=== PATIENT | female | born 1980 | race Caucasian/White ===

== ENCOUNTER → 2017-11-12 14:00 | Outpatient (CLI) | payer OTHER, MEDICAID, SELFPAY ==
--- NOTE | 2017-11-12 14:03 | DI.RAD.S_ITS ---
PROCEDURE: XR SACROILIAC JOINT MIN 3V INDICATIONS: back pain with family history of sacroilitis TECHNIQUE: 3 views of the sacroiliac joints were acquired. COMPARISON: None. FINDINGS: Bones: No bony erosions or ankylosis. No suspicious bony lesions. No fractures. Soft tissues: Overlying bowel gas pattern is normal. No suspicious soft tissue densities. IMPRESSION: No trauma found, no inflammation seen. No sign of ankylosing spondylitis. Dictated by: Osmani Sage M.D. on 11/12/2017 at 15:07 Approved by: Osmani Sage M.D. on 11/12/2017 at 15:07
--- NOTE | 2017-11-12 14:03 | DI.RAD.S_ITS ---
PROCEDURE: XR LUMBAR SPINE 2-3V INDICATIONS: low back pain TECHNIQUE: 3 views of the lumbar spine were acquired. COMPARISON: None. FINDINGS: Bones: 5 [id number] vertebrae are present. There is normal bony alignment. No vertebral body compression fractures. No suspicious bony lesions. Soft tissues: Overlying bowel gas pattern is normal. No suspicious soft tissue calcifications. IMPRESSION: Source of low back pain not found. Dictated by: Osamni Sage M.D. on 11/12/2017 at 15:07 Approved by: Osmani Sage M.D. on 11/12/2017 at 15:07
[2017-11-12 14:54] LABS: Erythrocyte Sedimentation Rate 11 MM/HR (0-20)
[2017-11-12 16:47] LABS: C-Reactive Protein Quant < 0.5 mg/dL (<1.0)
[2017-11-12 16:59] LABS: Rheumatoid Factor < 8.6 IU/mL (<12.0)
[2017-11-12 17:18] LABS: Thyroid Stimulating Hormone 1.95 uIU/mL (0.47-4.68)
[2017-11-14 12:28] LABS: Homocysteine 8.4 umol/L (< 10.4)
[2017-11-14 15:33] LABS: HLA B27 NEGATIVE (Negative)
[2017-11-16 22:04] LABS: ANA Screen NEGATIVE (Negative); DNA Antibody Crithidia IFA NEGATIVE (Negative); Rheumatoid Factor <14 IU/mL; Sjogren Antiboday SS-A <1.0 NEG AI (<1.0 NEGATIVE); Sjogren Antiboday SS-B <1.0 NEG AI (<1.0 NEGATIVE); Sm Antibody <1.0 NEG AI (<1.0 NEGATIVE); Sm/RNP Antibody <1.0 NEG AI (<1.0 NEGATIVE)
== END ==
PROVIDERS: Family Provider Physician Assistant; PCP Physician Assistant; Visit Provider Physician Assistant
DX: M54.9 Dorsalgia, unspecified (principal); M54.5 Low back pain; G89.29 Other chronic pain; Z83.2 Family history of diseases of the blood and blood-forming organs and certain disorders involving the immune mechanism
CPT/HCPCS: 36415; 72100; 72202; 83090; 84443; 85651; 86038; 86140; 86430; 86812

== ENCOUNTER 2018-03-30 08:45 | Outpatient (RCR) | payer OTHER, MEDICAID, SELFPAY ==
--- NOTE | 2017-10-21 14:22 | PT.OTN ---
Addendum entered and electronically signed by Ivory Martinez, PT 10/21/17 14:48: Transition note: On October 21, 2017 our therapy services consisting of Speech, Occupational, and Physical Therapy transitioned from the [employer] electronic documentation system to a new [employer] electronic documentation system.?? All documentation prior to October 21 can be found under [employer] saved data. From October 21 forward all medical record documentation will be in [employer]. Original Note: Physical Therapy Treatment Note PT-OP-A Visit Information Start: 10/21/17 13:51 Freq: Status: Active Protocol: Activity Type Activity Date Activity User E-Sign Co-Sign Detail Recorded Client Recorded Date Recorded By Document 10/21/17 13:54 AMB [email or web address] 10/21/17 14:22 AMB 10/21/17 13:54 Out-Patient Physical Therapy Visit Information [Visit Information] -Visit Type Treatment Note -Visit Note POC ends December 19. 24 visits authorized by insurance (used 6 previous in 2017). -Visit Start Time 09:50 -Visit Stop Time 10:30 -Total Visit Minutes 40 -Visit Number 5 PT-OP-C Subjective Start: 10/21/17 13:51 Freq: Status: Active Protocol: Activity Type Activity Date Activity User E-Sign Co-Sign Detail Recorded Client Recorded Date Recorded By Document 10/21/17 13:54 AMB [email or web address] 10/21/17 14:22 AMB 10/21/17 13:54 OP-PT Subjective [Patient Comments] -Patient Comments Patient states that her left hip pain has been better, but her pain has been different. Low back pain with taking a walk that radiates into lateral legs down to the knee bilaterally. PT-OP-Q Treatments Start: 10/21/17 13:51 Freq: Status: Active Protocol: Activity Type Activity Date Activity User E-Sign Co-Sign Detail Recorded Client Recorded Date Recorded By Document 10/21/17 13:54 AMB [email or web address] 10/21/17 14:22 AMB 10/21/17 13:54 Therapeutic Exercises [Supine Exercises] 2 -Supine Exercise Name Tap down from bilateral legs at 90-90 -Reps/Minutes 2x5 1 -Supine Exercise Name Bridge -Reps/Minutes 5 [Prone Exercises] 2 -Prone Exercise Name quadruped hip ER -Side left -Reps/Minutes 10 1 -Prone Exercise Name quadruped leg extension -Side left -Reps/Minutes 10 [Sidelying Exercises] 1 -Sidelying Exercise Name clam -Side left -Reps/Minutes 2x5 [Standing Exercises] 2 -Standing Exercise Name Mini squat -Reps/Minutes 12 1 -Standing Exercise Name Lunges -Side bilateral -Reps/Minutes 5 -Comments lateral and then forward Manual Therapy Treatment [Soft Tissue Mobilization] 2 -Body Location quadratus lumborum -Mobilization Type Sustained Pressure -Body Position Sidelying -Comments right 1 -Body Location Lateral thighs -Mobilization Type Rolling -Intensity/Depth Superficial -Body Position Sitting -Comments Instructed pt in rolling pin over IT bands PT-OP-T Assessment and Plan Start: 10/21/17 13:51 Freq: Status: Active Protocol: Activity Type Activity Date Activity User E-Sign Co-Sign Detail Recorded Client Recorded Date Recorded By Document 10/21/17 13:54 AMB [email or web address] 10/21/17 14:22 AMB 10/21/17 13:54 Physical Therapy Assessment [Assessment Summary] -Assessment Pt with improved piriformis pain , but worsened IT band pain. Coming from poor lumbopelvic stabilization. Physical Therapy Plan [Next Visit Focus/Plan] -Next Visit Plan Progress lumbopelvic stability Current Diagnoses Pain in left hip (10/21/17) Lumbago with sciatica, left side (10/21/17) Low back pain (10/21/17)
--- NOTE | 2017-10-29 16:43 | PT.OTN ---
Current Diagnoses Pain in left hip (10/28/17) Lumbago with sciatica, left side (10/28/17) Low back pain (10/28/17) Physical Therapy Treatment Note PT-OP-A Visit Information Start: 10/21/17 13:51 Freq: Status: Active Protocol: Document 10/28/17 10:31 AMB (Rec: 10/28/17 10:33 AMB [id number]) Out-Patient Physical Therapy Visit Information Visit Information Visit Type Treatment Note Visit Note POC ends December 19. 24 visits authorized by insurance (used 6 previous in 2018). Visit Start Time 10:30 Visit Stop Time 11:15 Total Visit Minutes 45 Visit Number 6 PT-OP-C Subjective Start: 10/21/17 13:51 Freq: Status: Active Protocol: Document 10/28/17 10:31 AMB (Rec: 10/29/17 16:41 AMB [email or web address]) OP-PT Subjective Patient Comments Patient Comments Patient states she tried swimming in the pool for about 25 minutes and is feeling pretty good. Her sister has been diagnosed with spondylolytic arthritis, so she is going to to talk with her PCP about that next week. PT-OP-Q Treatments Start: 10/21/17 13:51 Freq: Status: Active Protocol: Document 10/28/17 10:31 AMB (Rec: 10/29/17 16:41 AMB [email or web address]) Therapeutic Exercises Supine Exercises 3 Supine Exercise Name piriformis stretch Reps/Minutes 30 sec x 3 2 Supine Exercise Name Tap down from bilateral legs at 90-90 Reps/Minutes 2x5 1 Supine Exercise Name Bridge Reps/Minutes 5 Sidelying Exercises 1 Sidelying Exercise Name clam Side left Reps/Minutes 2x10 Standing Exercises 2 Standing Exercise Name Mini squat Reps/Minutes 12 1 Standing Exercise Name Lunges Side bilateral Reps/Minutes 5 Comments lateral and then forward Manual Therapy Treatment Soft Tissue Mobilization 3 Body Location piriformis Mobilization Type Sustained Pressure Intensity/Depth Moderate Body Position Sidelying 2 Body Location quadratus lumborum Mobilization Type Sustained Pressure Body Position Sidelying Comments right 1 Body Location Lateral thighs Mobilization Type Rolling Intensity/Depth Superficial Body Position Sitting Comments Instructed pt in rolling pin over IT bands PT-OP-T Assessment and Plan Start: 10/21/17 13:51 Freq: Status: Active Protocol: Document 10/28/17 10:31 AMB (Rec: 10/29/17 16:41 AMB [email or web address]) Physical Therapy Assessment Assessment Summary Assessment Improved pain today, pt tolerating greater activity. Physical Therapy Plan Next Visit Focus/Plan Next Visit Plan Progress core stability, QL flexibility
--- NOTE | 2017-11-05 07:27 | PT.OTN ---
Current Diagnoses Pain in left hip (11/04/17) Lumbago with sciatica, left side (11/04/17) Low back pain (11/04/17) Physical Therapy Treatment Note PT-OP-A Visit Information Start: 10/21/17 13:51 Freq: Status: Active Protocol: Document 11/04/17 13:00 AMB (Rec: 11/05/17 07:25 AMB [email or web address]) Out-Patient Physical Therapy Visit Information Visit Information Visit Type Treatment Note Visit Note POC ends December 19. 24 visits authorized by insurance (used 6 previous in 2018). Visit Start Time 13:00 Visit Stop Time 13:55 Total Visit Minutes 55 Visit Number 7 PT-OP-C Subjective Start: 10/21/17 13:51 Freq: Status: Active Protocol: Document 11/04/17 13:00 AMB (Rec: 11/05/17 07:25 AMB [email or web address]) OP-PT Subjective Patient Comments Patient Comments Pt's pain is slowly improving, although she has not been working and is concerned that if she had to return to sitting for an extended period of time that would be difficult to handle. Continues to have L sided hip pain and R sided low back pain . PT-OP-Q Treatments Start: 10/21/17 13:51 Freq: Status: Active Protocol: Document 11/04/17 13:00 AMB (Rec: 11/05/17 07:25 AMB [email or web address]) Therapeutic Exercises Supine Exercises 3 Supine Exercise Name piriformis stretch Reps/Minutes 30 sec x 3 2 Supine Exercise Name Tap down from bilateral legs at 90-90 Reps/Minutes 2x10 1 Supine Exercise Name Bridge Reps/Minutes 5 Prone Exercises 2 Prone Exercise Name quadruped hip ER Side left Reps/Minutes 10 1 Prone Exercise Name quadruped leg extension Side left Reps/Minutes 10 Sidelying Exercises 2 Sidelying Exercise Name hip abduction Side left Reps/Minutes 2 x 5 1 Sidelying Exercise Name clam Side left Reps/Minutes 2x10 Manual Therapy Treatment Soft Tissue Mobilization 3 Body Location piriformis Mobilization Type Sustained Pressure Intensity/Depth Moderate Body Position Sidelying Comments L 2 Body Location quadratus lumborum Mobilization Type Sustained Pressure Body Position Sidelying Comments right PT-OP-R Modalities Start: 11/05/17 07:27 Freq: Status: Active Protocol: Document 11/04/17 13:00 AMB (Rec: 11/05/17 07:27 AMB [email or web address]) Hot Pack/Cold Pack Treatment cold Location L hip Patient Position Hooklying Treatment Duration (minutes) 10 Patient Tolerance Good PT-OP-T Assessment and Plan Start: 10/21/17 13:51 Freq: Status: Active Protocol: Document 11/04/17 13:00 AMB (Rec: 11/05/17 07:25 AMB [email or web address]) Physical Therapy Assessment Assessment Summary Assessment Pt tolerating more repetitions , although still has poor endurance. Physical Therapy Plan Next Visit Focus/Plan Next Visit Plan Progress core/hip stability
--- NOTE | 2017-11-18 12:50 | PT.OTN ---
Current Diagnoses Pain in left hip (11/18/17) Lumbago with sciatica, left side (11/18/17) Low back pain (11/18/17) Physical Therapy Treatment Note PT-OP-A Visit Information Start: 10/21/17 13:51 Freq: Status: Active Protocol: Document 11/18/17 11:15 AMB (Rec: 11/18/17 12:49 AMB [email or web address]) Out-Patient Physical Therapy Visit Information Visit Information Visit Type Treatment Note Visit Note POC ends December 19. visits authorized by insurance (used 6 previous in 2018). Visit Start Time 13:00 Visit Stop Time 13:55 Total Visit Minutes 55 Visit Number 8 Evaluation Information Evaluation Date 09/29/17 PT-OP-C Subjective Start: 10/21/17 13:51 Freq: Status: Active Protocol: Document 11/18/17 11:15 AMB (Rec: 11/18/17 12:49 AMB [email or web address]) OP-PT Subjective Patient Comments Patient Comments Pt continues to have L sided radiating pain with extended standing. PT-OP-Q Treatments Start: 10/21/17 13:51 Freq: Status: Active Protocol: Document 11/18/17 11:15 AMB (Rec: 11/18/17 12:49 AMB [email or web address]) Therapeutic Exercises Supine Exercises 4 Supine Exercise Name 90-90 isometric hip Reps/Minutes 5 3 Supine Exercise Name piriformis stretch Reps/Minutes 30 sec x 3 2 Supine Exercise Name Tap down from bilateral legs at 90-90 Reps/Minutes 2x10 Prone Exercises 3 Prone Exercise Name ayla pose Reps/Minutes 30 sec x 2 Sidelying Exercises 2 Sidelying Exercise Name hip abduction Side left Reps/Minutes 2 x 7 Standing Exercises 3 Standing Exercise Name Standing posture Reps/Minutes 5 Comments avoid hyperextension of knees, hanging on Ys posture Manual Therapy Treatment Soft Tissue Mobilization 3 Body Location piriformis Mobilization Type Sustained Pressure Intensity/Depth Moderate Body Position Sidelying Comments L Joint Mobilizations 1 Joint sacroiliac Body Position Prone Manual Traction 1 Details prone double leg Reps/Duration 5 sec PT-OP-R Modalities Start: 11/05/17 07:27 Freq: Status: Active Protocol: Document 11/18/17 11:15 AMB (Rec: 11/18/17 12:49 AMB [email or web address]) Hot Pack/Cold Pack Treatment cold Location B hip Patient Position Hooklying Treatment Duration (minutes) 10 Patient Tolerance Good PT-OP-T Assessment and Plan Start: 10/21/17 13:51 Freq: Status: Active Protocol: Document 11/18/17 11:15 AMB (Rec: 11/18/17 12:49 AMB [email or web address]) Physical Therapy Assessment Assessment Summary Assessment Pt tolerated yard work but extended standing and walking on pavement are painful. Physical Therapy Plan Next Visit Focus/Plan Next Note Type Treatment Note Next Visit Plan Pt coming in in 2 weeks Please Sign and Return: I have reviewed this Plan of Care and certify that the skilled therapy services above are required to meet the patient???s needs. Physician Signature Date Printed Name and Credentials Clinical Instructor Signature Printed Name and Credentials
--- NOTE | 2017-11-27 13:53 | PT.OTN ---
Current Diagnoses Pain in left hip (11/27/17) Lumbago with sciatica, left side (11/27/17) Low back pain (11/27/17) Physical Therapy Treatment Note PT-OP-A Visit Information Start: 10/21/17 13:51 Freq: Status: Active Protocol: Document 11/27/17 09:00 AMB (Rec: 11/27/17 13:50 AMB [email or web address]) Out-Patient Physical Therapy Visit Information Visit Information Visit Type Treatment Note Visit Note POC ends December 19. visits authorized by insurance (used 6 previous in 2018). Visit Start Time 13:00 Visit Stop Time 13:55 Total Visit Minutes 55 Visit Number 9 Evaluation Information Evaluation Date 09/29/17 PT-OP-C Subjective Start: 10/21/17 13:51 Freq: Status: Active Protocol: Document 11/27/17 09:00 AMB (Rec: 11/27/17 13:50 AMB [email or web address]) OP-PT Subjective Patient Comments Patient Comments Pt reports pain continues to go down her left leg, but she was better able to tolerate sitting over the weekend. PT-OP-Q Treatments Start: 10/21/17 13:51 Freq: Status: Active Protocol: Document 11/27/17 09:00 AMB (Rec: 11/27/17 13:50 AMB [email or web address]) Therapeutic Exercises Supine Exercises 3 Supine Exercise Name piriformis stretch Reps/Minutes 30 sec x 3 2 Supine Exercise Name Tap down from bilateral legs at 90-90 Reps/Minutes 2x10 Prone Exercises 4 Prone Exercise Name spinal extension Comments on forearms Standing Exercises 4 Standing Exercise Name hip hike Reps/Minutes 2 x 5 Manual Therapy Treatment Soft Tissue Mobilization 3 Body Location piriformis Mobilization Type Sustained Pressure Intensity/Depth Moderate Body Position Sidelying Comments L 2 Body Location quadratus lumborum Mobilization Type Sustained Pressure Body Position Sidelying Comments right PT-OP-R Modalities Start: 11/05/17 07:27 Freq: Status: Active Protocol: Document 11/27/17 09:00 AMB (Rec: 11/27/17 13:51 AMB [email or web address]) Hot Pack/Cold Pack Treatment cold Location L hip Patient Position Hooklying Treatment Duration (minutes) 10 Patient Tolerance Good PT-OP-T Assessment and Plan Start: 10/21/17 13:51 Freq: Status: Active Protocol: Document 11/27/17 09:00 AMB (Rec: 11/27/17 13:50 AMB [email or web address]) Physical Therapy Assessment Assessment Summary Assessment Pt continues to fatigue quickly Physical Therapy Plan Next Visit Focus/Plan Next Note Type Treatment Note Next Visit Plan Follow up on QL, multifidus strengthening Please Sign and Return: I have reviewed this Plan of Care and certify that the skilled therapy services above are required to meet the patient?s needs. Physician Signature Date Printed Name and Credentials Clinical Instructor Signature Printed Name and Credentials
--- NOTE | 2017-12-08 10:24 | PT.OTN ---
Current Diagnoses Pain in left hip (12/08/17) Lumbago with sciatica, left side (12/08/17) Low back pain (12/08/17) Physical Therapy Treatment Note PT-OP-A Visit Information Start: 10/21/17 13:51 Freq: Status: Active Protocol: Document 12/08/17 09:00 AMB (Rec: 12/08/17 09:11 AMB [id number]) Out-Patient Physical Therapy Visit Information Visit Information Visit Type Treatment Note Visit Note POC ends December 19. visits authorized by insurance (used 6 previous in 2018). Visit Start Time 09:00 Visit Stop Time 09:45 Total Visit Minutes 55 Visit Number 10 Evaluation Information Evaluation Date 09/29/17 PT-OP-C Subjective Start: 10/21/17 13:51 Freq: Status: Active Protocol: Document 12/08/17 09:00 AMB (Rec: 12/08/17 09:47 AMB [id number]) OP-PT Subjective Patient Comments Patient Comments Pt states she is feeling pretty good, she was camping last week and that went well. She notes driving to [employer] is still painful, but she drove last week for 1.5 hours and that went well. Walking on the sidewalk is still painful, but walking on sand went well. PT-OP-Q Treatments Start: 10/21/17 13:51 Freq: Status: Active Protocol: Document 12/08/17 09:00 AMB (Rec: 12/08/17 09:56 AMB [id number]) Gym Equipment Therapeutic Ball 1 Exercise Details seated pelvic tilt, circles Ball Size/Color 65cm Body Position Sitting Reps/Duration 5 min Comments increased vulvodynia sx after 5 min Therapeutic Exercises Supine Exercises 3 Supine Exercise Name piriformis stretch Reps/Minutes 30 sec x 3 2 Supine Exercise Name Tap down from bilateral legs at 90-90 Reps/Minutes 2x10 Prone Exercises 3 Prone Exercise Name ayla pose Reps/Minutes 30 sec x 2 Therapeutic Activity Therapeutic Activity 1 Name desk ergonomics Reps/Minutes 5 Comments sitting ergonomics with footrest PT-OP-R Modalities Start: 11/05/17 07:27 Freq: Status: Active Protocol: Document 11/27/17 09:00 AMB (Rec: 11/27/17 13:51 AMB [email or web address]) Hot Pack/Cold Pack Treatment cold Location L hip Patient Position Hooklying Treatment Duration (minutes) 10 Patient Tolerance Good PT-OP-T Assessment and Plan Start: 10/21/17 13:51 Freq: Status: Active Protocol: Document 12/08/17 09:00 AMB (Rec: 12/08/17 10:11 AMB [id number]) Physical Therapy Assessment Goals 3 Impairment Strength Short Term Goal (STG) The patient will be independent with her HEP to improve core and LE strength. STG Duration 4 weeks 2 Impairment Pain Short Term Goal (STG) The patient will perform all ADLs without pain that radiates into leg. PARTIALLY MET- standing and cooking continue to increase pain STG Duration 4 weeks [facility] Goal (LTG) The patient will have decreased tenderness over her lumbar spine and SI joint with moderate palpation. LTG Duration 8 weeks 1 Impairment Positional tolerance Short Term Goal (STG) The patient will ambulate on firm surfaces for 30 minutes without an increase in baseline pain. STG Duration 4 weeks Drug Abuse Resistance Education Officer Goal (LTG) The patient will sit in a chair for 30 minutes without an increase in baseline pain. MET LTG Duration 8 weeks Assessment Summary Assessment Better pain control today, but will need to gradually increase activity (sitting/ standing/walking tolerance). Physical Therapy Plan Frequency and Duration Frequency of Treatment 1x/Week Duration of Treatment 8 weeks Plan of Care Start Date 12/08/17 Plan of Care End Date 02/02/18 Therapeutic Interventions Therapeutic Interventions Home Exercise Program Manual Therapy Neuromuscular Re-education Self-Care/Home Management Soft Tissue Mobilization Therapeutic Activities Therapeutic Exercises Modalities Cold Pack/Ice Massage Electric Stimulation Hot Packs Ultrasound Next Visit Focus/Plan Next Note Type Treatment Note Next Visit Plan See pt in 3 weeks to follow up , make sure no other flare ups . Please Sign and Return: I have reviewed this Plan of Care and certify that the skilled therapy services above are required to meet the patient?s needs. Physician Signature Date Printed Name and Credentials Clinical Instructor Signature Printed Name and Credentials
--- NOTE | 2017-12-29 10:12 | PT.OTN ---
Current Diagnoses Pain in left hip (12/29/17) Lumbago with sciatica, left side (12/29/17) Low back pain (12/29/17) Physical Therapy Treatment Note PT-OP-A Visit Information Start: 10/21/17 13:51 Freq: Status: Active Protocol: Document 12/29/17 09:32 AMB (Rec: 12/29/17 09:37 AMB [id number]) Out-Patient Physical Therapy Visit Information Visit Information Visit Type Treatment Note Visit Note POC ends December 19. visits authorized by insurance (used 6 previous in 2018). Visit Start Time 09:00 Visit Stop Time 09:45 Total Visit Minutes 45 Visit Number 11 Evaluation Information Evaluation Date 09/29/17 PT-OP-C Subjective Start: 10/21/17 13:51 Freq: Status: Active Protocol: Document 12/29/17 09:32 AMB (Rec: 12/29/17 09:37 AMB [id number]) OP-PT Subjective Patient Comments Patient Comments 2-5/10 pain over last week PT-OP-Q Treatments Start: 10/21/17 13:51 Freq: Status: Active Protocol: Document 12/29/17 09:00 AMB (Rec: 12/29/17 10:07 AMB [id number]) Therapeutic Exercises Supine Exercises 5 Supine Exercise Name pelvic tilt with focus on multifidus Reps/Minutes 30x2 Prone Exercises 4 Prone Exercise Name spinal extension Comments on forearms 3 Prone Exercise Name ayla pose Reps/Minutes 30 sec x 2 Sidelying Exercises 4 Sidelying Exercise Name sidelying QL stretch Reps/Minutes 5 min 3 Sidelying Exercise Name modified side plank Reps/Minutes 5 sec x5 Standing Exercises 4 Standing Exercise Name hip hike Reps/Minutes 2 x 5 Manual Therapy Treatment Soft Tissue Mobilization 2 Body Location quadratus lumborum Mobilization Type Sustained Pressure Body Position Sidelying Comments right Self-Care/Home Management Treatment Education Other Education Appropriate orthotics, tried superfeet, [place] felt the best , blue also felt ok, education on the role of orthotics PT-OP-R Modalities Start: 11/05/17 07:27 Freq: Status: Active Protocol: Document 12/29/17 09:00 AMB (Rec: 12/29/17 10:07 AMB [id number]) Hot Pack/Cold Pack Treatment cold Location R low back Patient Position Hooklying Treatment Duration (minutes) 10 Patient Tolerance Good PT-OP-T Assessment and Plan Start: 10/21/17 13:51 Freq: Status: Active Protocol: Document 12/29/17 09:00 AMB (Rec: 12/29/17 10:12 AMB [id number]) Physical Therapy Assessment Assessment Summary Assessment Pt overall improving, but walking on pavement continues to be painful (superfeet orthotics suggested) and extended sitting continues to cause stiffness. R QL continues to be painful. Physical Therapy Plan Next Visit Focus/Plan Next Note Type Treatment Note Next Visit Plan Finalize HEP
--- NOTE | 2018-01-27 15:57 | PT.OTN ---
Current Diagnoses Pain in left hip (01/27/18) Lumbago with sciatica, left side (01/27/18) Low back pain (01/27/18) Physical Therapy Treatment Note PT-OP-A Visit Information Start: 10/21/17 13:51 Freq: Status: Active Protocol: Document 01/27/18 10:30 AMB (Rec: 01/27/18 15:43 AMB [email or web address]) Out-Patient Physical Therapy Visit Information Visit Information Visit Type Progress Note Visit Note (previously used 6) Visit Start Time 10:30 Visit Stop Time 11:15 Total Visit Minutes 45 Visit Number 12 Evaluation Information Evaluation Date 09/29/17 PT-OP-C Subjective Start: 10/21/17 13:51 Freq: Status: Active Protocol: Document 01/27/18 10:30 AMB (Rec: 01/27/18 15:43 AMB [email or web address]) OP-PT Subjective Patient Comments Patient Comments The patient has successfully gone backpacking and has been slowly increasing her overall activity. She continues to have R sided QL pain and L sided IT band pain, but her original hip pain is better. PT-OP-Q Treatments Start: 10/21/17 13:51 Freq: Status: Active Protocol: Document 01/27/18 10:30 AMB (Rec: 01/27/18 15:43 AMB [email or web address]) Therapeutic Exercises Supine Exercises 5 Supine Exercise Name pelvic tilt with focus on multifidus Reps/Minutes 30x2 Sidelying Exercises 4 Sidelying Exercise Name sidelying QL stretch Reps/Minutes 5 min Standing Exercises 1 Standing Exercise Name IT band stretch Reps/Minutes 30x4 Manual Therapy Treatment Soft Tissue Mobilization 2 Body Location quadratus lumborum Mobilization Type Sustained Pressure Body Position Sidelying Comments right PT-OP-R Modalities Start: 11/05/17 07:27 Freq: Status: Active Protocol: Document 01/27/18 10:30 AMB (Rec: 01/27/18 15:43 AMB [email or web address]) Hot Pack/Cold Pack Treatment Hot Pack Location Low back Patient Position Hooklying Treatment Duration (minutes) 10 PT-OP-T Assessment and Plan Start: 10/21/17 13:51 Freq: Status: Active Protocol: Document 01/27/18 10:30 AMB (Rec: 01/27/18 15:56 AMB [email or web address]) Physical Therapy Assessment Goals 3 Impairment Strength Short Term Goal (STG) The patient will be independent with her HEP to improve core and hip strength. PROGRESS MADE STG Duration 4 weeks 2 Impairment Pain Short Term Goal (STG) The patient will perform all ADLs without pain that radiates into leg. MET- STG Duration 4 weeks Laborer [place]bark Goal (LTG) The patient will have decreased tenderness over her lumbar spine and SI joint with moderate palpation. PROGRESS MADE LTG Duration 8 weeks 1 Impairment Positional tolerance Short Term Goal (STG) The patient will ambulate on firm surfaces for 30 minutes without an increase in baseline pain. MET STG Duration 4 weeks Laborer [place]bark Goal (LTG) The patient will sit in a chair for 30 minutes without an increase in baseline pain. MET LTG Duration 8 weeks Assessment Summary Assessment The patient has shown improvement in activity tolerance. Her right sided quadratus lumborum pain has been difficult to reduce. Manual therapy does improve sx , but the patient is hesitant to come to PT too often, or she will use all of her PT benefits for the year. So we will see her fairly infrequently to suggest appropriate progression of stabilization and stretching. The patient has been consistent with her HEP and is showing progress, although it is slow. Physical Therapy Plan Frequency and Duration Frequency of Treatment Every Other Week Duration of Treatment 12 weeks Plan of Care Start Date 01/27/18 Plan of Care End Date 04/21/18 Next Visit Focus/Plan Next Note Type Treatment Note Next Visit Plan 1 visit in 1 month to follow up on QL pain
--- NOTE | 2018-01-27 15:58 | PT.OPPOC ---
Current Diagnoses Pain in left hip (01/27/18) Lumbago with sciatica, left side (01/27/18) Low back pain (01/27/18) Provider Visit Care Team Role Provider Type Jaqueline Dumont PA-C Attending Provider Advanced Supervisor [employer] Family Provider Primary Care Provider Referring Provider Specialty: Family Practice Address: [address] [place] [address], [facility] Email: [email or web address] Plan Of Care PT-OP-T Assessment and Plan Start: 10/21/17 13:51 Freq: Status: Active Protocol: Document 01/27/18 10:30 AMB (Rec: 01/27/18 15:56 AMB [email or web address]) Physical Therapy Assessment Goals 3 Impairment Strength Short Term Goal (STG) The patient will be independent with her HEP to improve core and hip strength. PROGRESS MADE STG Duration 4 weeks 2 Impairment Pain Short Term Goal (STG) The patient will perform all ADLs without pain that radiates into leg. MET- STG Duration 4 weeks Information Technology Director Goal (LTG) The patient will have decreased tenderness over her lumbar spine and SI joint with moderate palpation. PROGRESS MADE LTG Duration 8 weeks 1 Impairment Positional tolerance Short Term Goal (STG) The patient will ambulate on firm surfaces for 30 minutes without an increase in baseline pain. MET STG Duration 4 weeks Residential Goal (LTG) The patient will sit in a chair for 30 minutes without an increase in baseline pain. MET LTG Duration 8 weeks Assessment Summary Assessment The patient has shown improvement in activity tolerance. Her right sided quadratus lumborum pain has been difficult to reduce. Manual therapy does improve sx , but the patient is hesitant to come to PT too often, or she will use all of her PT benefits for the year. So we will see her fairly infrequently to suggest appropriate progression of stabilization and stretching. The patient has been consistent with her HEP and is showing progress, although it is slow. Physical Therapy Plan Frequency and Duration Frequency of Treatment Every Other Week Duration of Treatment 12 weeks Plan of Care Start Date 01/27/18 Plan of Care End Date 04/21/18 Next Visit Focus/Plan Next Note Type Treatment Note Next Visit Plan 1 visit in 1 month to follow up on QL pain Plan of Care Dates Plan of Care Start Date 01/27/18 Plan of Care End Date 04/21/18 Please Sign and Return: I have reviewed this Plan of Care and certify that the skilled therapy services above are required to meet the patient?s needs. Physician Signature Date Printed Name and Credentials Clinical Instructor Signature Printed Name and Credentials
--- NOTE | 2018-02-27 12:09 | PT.OTN ---
Current Diagnoses Pain in left hip (02/25/18) Lumbago with sciatica, left side (02/25/18) Low back pain (02/25/18) Physical Therapy Treatment Note PT-OP-A Visit Information Start: 10/21/17 13:51 Freq: Status: Active Protocol: Document 02/25/18 13:00 AMB (Rec: 02/27/18 12:07 AMB [email or web address]) Out-Patient Physical Therapy Visit Information Visit Information Visit Type Progress Note Visit Note Visit Start Time 10:30 Visit Stop Time 11:15 Total Visit Minutes 45 Visit Number 13 Evaluation Information Evaluation Date 09/29/17 PT-OP-C Subjective Start: 10/21/17 13:51 Freq: Status: Active Protocol: Document 02/25/18 13:00 AMB (Rec: 02/27/18 12:07 AMB [email or web address]) OP-PT Subjective Patient Comments Patient Comments The patient's R sided back pain has been difficult to go away completely, her L sided sciatica has been better. She is hoping to come to PT a little more frequently to see if we can really progress her right sided back pain. PT-OP-Q Treatments Start: 10/21/17 13:51 Freq: Status: Active Protocol: Document 02/25/18 13:00 AMB (Rec: 02/27/18 12:07 AMB [email or web address]) Therapeutic Exercises Prone Exercises 4 Prone Exercise Name spinal extension Comments on forearms 3 Prone Exercise Name ayla pose Reps/Minutes 30 sec x 2 Sidelying Exercises 4 Sidelying Exercise Name sidelying QL stretch Reps/Minutes 5 min Manual Therapy Treatment Soft Tissue Mobilization 2 Body Location quadratus lumborum Mobilization Type Sustained Pressure Body Position Sidelying Comments right Taping 1 Body Location R lateral back Treatment Focus 2 I strips Type of Tape Kinesio Tape PT-OP-R Modalities Start: 11/05/17 07:27 Freq: Status: Active Protocol: Document 02/25/18 13:00 AMB (Rec: 02/27/18 12:07 AMB [email or web address]) Ultrasound Therapy Treatment Right Lower Lateral Back Treatment Duration (minutes) 8 Patient Position Sidelying Coupling Medium Ultrasound Gel Frequency Setting (mHz) 1 Intensity Setting (w/cm2) 1.3 PT-OP-T Assessment and Plan Start: 10/21/17 13:51 Freq: Status: Active Protocol: Document 02/25/18 13:00 AMB (Rec: 02/27/18 12:07 AMB [email or web address]) Physical Therapy Assessment Goals 3 Impairment Strength Short Term Goal (STG) The patient will be independent with her HEP to improve core and hip strength. PROGRESS MADE STG Duration 4 weeks 2 Impairment Pain Short Term Goal (STG) The patient will perform all ADLs without pain that radiates into leg. MET- STG Duration 4 weeks Medical Investigator Goal (LTG) The patient will have decreased tenderness over her lumbar spine and SI joint with moderate palpation. PROGRESS MADE LTG Duration 8 weeks 1 Impairment Positional tolerance Short Term Goal (STG) The patient will ambulate on firm surfaces for 30 minutes without an increase in baseline pain. MET STG Duration 4 weeks Correction Goal (LTG) The patient will sit in a chair for 30 minutes without an increase in baseline pain. MET LTG Duration 8 weeks Assessment Summary Assessment The patient's left sided pain has been slowly reducing, but her right sided stiffness, especially in the morning has not been improving very quickly, so we are going to increase the frequency of her treatment in order to really target that ride sided QL pain . Physical Therapy Plan Frequency and Duration Frequency of Treatment 1x/Week Duration of Treatment 12 weeks Plan of Care Start Date 02/25/18 Plan of Care End Date 05/20/18 Therapeutic Interventions Therapeutic Interventions Home Exercise Program Manual Therapy Neuromuscular Re-education Self-Care/Home Management Soft Tissue Mobilization Therapeutic Activities Therapeutic Exercises Modalities Cold Pack/Ice Massage Electric Stimulation Hot Packs Ultrasound Next Visit Focus/Plan Next Note Type Treatment Note Next Visit Plan 1x/ week to focus on reduceing R sided back pain ( pain is the worst after being stationary and then trying to move.)
--- NOTE | 2018-02-27 12:10 | PT.OPPOC ---
Current Diagnoses Pain in left hip (02/25/18) Lumbago with sciatica, left side (02/25/18) Low back pain (02/25/18) Provider Visit Care Team Role Provider Type Jaqueline Dumont PA-C Attending Provider Advanced Airframe Technician Family Provider Primary Care Provider Referring Provider Specialty: Family Practice Address: [address] [place] [address], [facility] Email: [email or web address] Plan Of Care PT-OP-T Assessment and Plan Start: 10/21/17 13:51 Freq: Status: Active Protocol: Document 02/25/18 13:00 AMB (Rec: 02/27/18 12:07 AMB [email or web address]) Physical Therapy Assessment Goals 3 Impairment Strength Short Term Goal (STG) The patient will be independent with her HEP to improve core and hip strength. PROGRESS MADE STG Duration 4 weeks 2 Impairment Pain Short Term Goal (STG) The patient will perform all ADLs without pain that radiates into leg. MET- STG Duration 4 weeks Scheduling Manager Goal (LTG) The patient will have decreased tenderness over her lumbar spine and SI joint with moderate palpation. PROGRESS MADE LTG Duration 8 weeks 1 Impairment Positional tolerance Short Term Goal (STG) The patient will ambulate on firm surfaces for 30 minutes without an increase in baseline pain. MET STG Duration 4 weeks Fpc Goal (LTG) The patient will sit in a chair for 30 minutes without an increase in baseline pain. MET LTG Duration 8 weeks Assessment Summary Assessment The patient's left sided pain has been slowly reducing, but her right sided stiffness, especially in the morning has not been improving very quickly, so we are going to increase the frequency of her treatment in order to really target that ride sided QL pain . Physical Therapy Plan Frequency and Duration Frequency of Treatment 1x/Week Duration of Treatment 12 weeks Plan of Care Start Date 02/25/18 Plan of Care End Date 05/20/18 Therapeutic Interventions Therapeutic Interventions Home Exercise Program Manual Therapy Neuromuscular Re-education Self-Care/Home Management Soft Tissue Mobilization Therapeutic Activities Therapeutic Exercises Modalities Cold Pack/Ice Massage Electric Stimulation Hot Packs Ultrasound Next Visit Focus/Plan Next Note Type Treatment Note Next Visit Plan 1x/ week to focus on reduceding R sided back pain ( pain is the worst after being stationary and then trying to move.) Plan of Care Dates Plan of Care Start Date 02/25/18 Plan of Care End Date 05/20/18 Please Sign and Return: I have reviewed this Plan of Care and certify that the skilled therapy services above are required to meet the patient?s needs. Physician Signature Date Printed Name and Credentials Clinical Instructor Signature Printed Name and Credentials
--- NOTE | 2018-03-05 15:22 | PT.OTN ---
Current Diagnoses Pain in left hip (03/05/18) Lumbago with sciatica, left side (03/05/18) Low back pain (03/05/18) Physical Therapy Treatment Note PT-OP-A Visit Information Start: 10/21/17 13:51 Freq: Status: Active Protocol: Document 03/05/18 09:44 [facility] (Rec: 03/05/18 15:22 [facility] [id number]) Out-Patient Physical Therapy Visit Information Visit Information Visit Type Treatment Note Visit Note Visit Start Time 09:45 Visit Stop Time 10:45 Total Visit Minutes 60 Visit Number 14 PT-OP-C Subjective Start: 10/21/17 13:51 Freq: Status: Active Protocol: Document 03/05/18 09:44 [facility] (Rec: 03/05/18 15:22 [facility] [id number]) OP-PT Subjective Patient Comments Patient Comments Pt reports she felt a little better after last session. PT-OP-Q Treatments Start: 10/21/17 13:51 Freq: Status: Active Protocol: Document 03/05/18 09:44 [facility] (Rec: 03/05/18 15:22 [facility] [id number]) Therapeutic Exercises Supine Exercises 4 Supine Exercise Name bridge w/faciliation & cueing 3 Supine Exercise Name scissors with faciliation & cueing Therapeutic Activity Therapeutic Activity 2 Name review HEP 1 Name Sleep positioning Manual Therapy Treatment Joint Mobilizations 3 Joint innominate Direction caudal L & ER R 2 Joint hip Direction on axis FM ER & IR 1 Joint sacrum Direction caudal & UPA FM Taping 1 Body Location R lateral back Treatment Focus 2 I strips Type of Tape Kinesio Tape PT-OP-R Modalities Start: 11/05/17 07:27 Freq: Status: Active Protocol: Document 03/05/18 09:44 [facility] (Rec: 03/05/18 15:22 [facility] [id number]) Hot Pack/Cold Pack Treatment Hot Pack Location Low back Patient Position Hooklying Treatment Duration (minutes) 15 Ultrasound Therapy Treatment Right Lower Lateral Back Treatment Duration (minutes) 8 Patient Position Prone Coupling Medium Ultrasound Gel Frequency Setting (mHz) 1 Intensity Setting (w/cm2) 1.3 PT-OP-T Assessment and Plan Start: 10/21/17 13:51 Freq: Status: Active Protocol: Document 03/05/18 09:44 [facility] (Rec: 03/05/18 15:22 [facility] [id number]) Physical Therapy Assessment Goals 3 Impairment Strength Short Term Goal (STG) The patient will be independent with her HEP to improve core and hip strength. PROGRESS MADE STG Duration 4 weeks 2 Impairment Pain Short Term Goal (STG) The patient will perform all ADLs without pain that radiates into leg. MET- STG Duration 4 weeks Fpc Goal (LTG) The patient will have decreased tenderness over her lumbar spine and SI joint with moderate palpation. PROGRESS MADE LTG Duration 8 weeks 1 Impairment Positional tolerance Short Term Goal (STG) The patient will ambulate on firm surfaces for 30 minutes without an increase in baseline pain. MET STG Duration 4 weeks Apron Worker Goal (LTG) The patient will sit in a chair for 30 minutes without an increase in baseline pain. MET LTG Duration 8 weeks Assessment Summary Assessment Pt required cueing for core exercises to maintain neutral lumbar spine & sacrum. Significant ant tightness of R side. Physical Therapy Plan Frequency and Duration Frequency of Treatment 1x/Week Duration of Treatment 12 weeks Plan of Care Start Date 02/25/18 Plan of Care End Date 05/20/18 Next Visit Focus/Plan Next Note Type Treatment Note Next Visit Plan Assess standing & sitting posture; work on posterior depression & STM to R iliacus; R hip flexor stretching
--- NOTE | 2018-03-11 12:47 | PT.OTN ---
Current Diagnoses Pain in left hip (03/11/18) Lumbago with sciatica, left side (03/11/18) Low back pain (03/11/18) Physical Therapy Treatment Note PT-OP-A Visit Information Start: 10/21/17 13:51 Freq: Status: Active Protocol: Document 03/11/18 12:05 [facility] (Rec: 03/11/18 12:47 [facility] [id number]) Out-Patient Physical Therapy Visit Information Visit Information Visit Type Treatment Note Visit Note Visit Start Time 12:05 Visit Stop Time 13:00 Total Visit Minutes 55 Visit Number 15 Evaluation Information Evaluation Date 09/29/17 PT-OP-C Subjective Start: 10/21/17 13:51 Freq: Status: Active Protocol: Document 03/11/18 12:05 [facility] (Rec: 03/11/18 12:47 [facility] [id number]) OP-PT Subjective Patient Comments Patient Comments It's been an up and down week . PT-OP-Q Treatments Start: 10/21/17 13:51 Freq: Status: Active Protocol: Document 03/11/18 12:05 [facility] (Rec: 03/11/18 12:47 [facility] [id number]) Gym Equipment Therapeutic Ball 1 Exercise Details seated pelvic tilt, circles Ball Size/Color 65cm Body Position Sitting Therapeutic Exercises Prone Exercises 2 Prone Exercise Name quadruped hip ER Side bilateral Reps/Minutes 10 1 Prone Exercise Name quadruped leg extension Side bilateral Reps/Minutes 10 Standing Exercises 5 Standing Exercise Name Half-kneel psoas stretch Manual Therapy Treatment Soft Tissue Mobilization 4 Body Location Psoas Mobilization Type Strumming Sustained Pressure Intensity/Depth Deep Body Position Supine 2 Body Location quadratus lumborum Mobilization Type Sustained Pressure Body Position Sidelying Comments right Joint Mobilizations 3 Joint innominate Direction caudal L & ER R PT-OP-R Modalities Start: 11/05/17 07:27 Freq: Status: Active Protocol: Document 03/11/18 12:05 [facility] (Rec: 03/11/18 12:47 [facility] [id number]) Hot Pack/Cold Pack Treatment Hot Pack Location Low back Patient Position Hooklying Treatment Duration (minutes) 15 PT-OP-T Assessment and Plan Start: 10/21/17 13:51 Freq: Status: Active Protocol: Document 03/11/18 12:05 [facility] (Rec: 03/11/18 12:47 [facility] [id number]) Physical Therapy Assessment Goals 3 Impairment Strength Short Term Goal (STG) The patient will be independent with her HEP to improve core and hip strength. PROGRESS MADE STG Duration 4 weeks 2 Impairment Pain Short Term Goal (STG) The patient will perform all ADLs without pain that radiates into leg. MET- STG Duration 4 weeks Lead Process Engineer Goal (LTG) The patient will have decreased tenderness over her lumbar spine and SI joint with moderate palpation. PROGRESS MADE LTG Duration 8 weeks 1 Impairment Positional tolerance Short Term Goal (STG) The patient will ambulate on firm surfaces for 30 minutes without an increase in baseline pain. MET STG Duration 4 weeks Lead Process Engineer Goal (LTG) The patient will sit in a chair for 30 minutes without an increase in baseline pain. MET LTG Duration 8 weeks Assessment Summary Assessment Pt requested further review of HEP, as she has found increased back tightness with recent increase in activity. Recommended to pt to scale back activity to limit pain. Physical Therapy Plan Frequency and Duration Frequency of Treatment 1x/Week Duration of Treatment 12 weeks Plan of Care Start Date 02/25/18 Plan of Care End Date 05/20/18 Therapeutic Interventions Therapeutic Interventions Home Exercise Program Manual Therapy Neuromuscular Re-education Self-Care/Home Management Soft Tissue Mobilization Therapeutic Activities Therapeutic Exercises Modalities Cold Pack/Ice Massage Electric Stimulation Hot Packs Ultrasound Next Visit Focus/Plan Next Note Type Treatment Note Next Visit Plan 1x/ week to focus on reduceding R sided back pain ( pain is the worst after being stationary and then trying to move.)
--- NOTE | 2018-03-17 16:56 | PT.OTN ---
Current Diagnoses Pain in left hip (03/17/18) Lumbago with sciatica, left side (03/17/18) Low back pain (03/17/18) Physical Therapy Treatment Note PT-OP-A Visit Information Start: 10/21/17 13:51 Freq: Status: Active Protocol: Document 03/17/18 16:27 [facility] (Rec: 03/17/18 16:56 [facility] [email or web address]) Out-Patient Physical Therapy Visit Information Visit Information Visit Type Treatment Note Visit Note Visit Start Time 12:05 Visit Stop Time 13:00 Total Visit Minutes 55 Visit Number 15 PT-OP-C Subjective Start: 10/21/17 13:51 Freq: Status: Active Protocol: Document 03/17/18 16:27 [facility] (Rec: 03/17/18 16:56 [facility] [email or web address]) OP-PT Subjective Patient Comments Patient Comments Pt reports she has been more sore with manual treatment over the past 2 weeks. Reports compliance with HEP. PT-OP-Q Treatments Start: 10/21/17 13:51 Freq: Status: Active Protocol: Document 03/17/18 16:27 [facility] (Rec: 03/17/18 16:56 [facility] [email or web address]) Therapeutic Exercises Supine Exercises 4 Supine Exercise Name bridge w/faciliation & cueing 3 Supine Exercise Name marching with neutral pelvis Comments w/hands on pelvis to monitor 2 Supine Exercise Name heel slides w/neutral pelvis Comments w/hands on pelvis to monitor 1 Supine Exercise Name hip flex isometric Reps/Minutes 5 sec holds Prone Exercises 2 Prone Exercise Name quadruped hip ER Side bilateral Reps/Minutes 10 Comments tactile cueing with folder 1 Prone Exercise Name quadruped leg extension Side bilateral Reps/Minutes 10 Comments tactile cueing with folder Standing Exercises 5 Standing Exercise Name Half-kneel psoas stretch Manual Therapy Treatment Manual Techniques 2 Type MET for R ant rot Comments did not tolerate so stopped 1 Type Gentle post depression stretch pelvis Self-Care/Home Management Treatment Education Patient Education Home Exercise Program Other Education Reviewed home program; reviewed importance of avoiding exercises that cause pain, Tested blue strap as SI belt and gave pt relief with gait. Discussed possibility of getting one PT-OP-R Modalities Start: 11/05/17 07:27 Freq: Status: Active Protocol: Document 03/17/18 16:27 [facility] (Rec: 03/17/18 16:56 [facility] [email or web address]) Electric Stimulation Electric Stimulation Interferential Current (IFC) Body Location lumbosacral Duration (Minutes) 15 Patient Position Hooklying Combined With Heat/Cold Hot Pack PT-OP-T Assessment and Plan Start: 10/21/17 13:51 Freq: Status: Active Protocol: Document 03/17/18 16:27 [facility] (Rec: 03/17/18 16:56 [facility] [email or web address]) Physical Therapy Assessment Goals 3 Impairment Strength Short Term Goal (STG) The patient will be independent with her HEP to improve core and hip strength. PROGRESS MADE STG Duration 4 weeks 2 Impairment Pain Short Term Goal (STG) The patient will perform all ADLs without pain that radiates into leg. MET- STG Duration 4 weeks Cardiograph Operator Goal (LTG) The patient will have decreased tenderness over her lumbar spine and SI joint with moderate palpation. PROGRESS MADE LTG Duration 8 weeks 1 Impairment Positional tolerance Short Term Goal (STG) The patient will ambulate on firm surfaces for 30 minutes without an increase in baseline pain. MET STG Duration 4 weeks Cardiograph Operator Goal (LTG) The patient will sit in a chair for 30 minutes without an increase in baseline pain. MET LTG Duration 8 weeks Assessment Summary Assessment Pt benefited from trial of SI belt and may benefit from getting home belt for help with stability. Pt has significant difficulty in supine & quadruped maintaining pelvic staiblity and requires tactile and VC. Physical Therapy Plan Frequency and Duration Frequency of Treatment 1x/Week Duration of Treatment 12 weeks Plan of Care Start Date 02/25/18 Plan of Care End Date 05/20/18 Next Visit Focus/Plan Next Note Type Treatment Note Next Visit Plan discuss possibility for SI belt, Review HEP; schedule 1 further visit after next session (insurance limit)
--- NOTE | 2018-03-25 16:22 | PT.OTN ---
Current Diagnoses Pain in left hip (03/25/18) Lumbago with sciatica, left side (03/25/18) Low back pain (03/25/18) Physical Therapy Treatment Note PT-OP-A Visit Information Start: 10/21/17 13:51 Freq: Status: Active Protocol: Document 03/25/18 13:00 AMB (Rec: 03/25/18 16:22 AMB [email or web address]) Out-Patient Physical Therapy Visit Information Visit Information Visit Type Treatment Note Visit Note Visit Start Time 13:00 Visit Stop Time 13:45 Total Visit Minutes 45 Visit Number 17 Evaluation Information Evaluation Date 09/29/17 PT-OP-C Subjective Start: 10/21/17 13:51 Freq: Status: Active Protocol: Document 03/25/18 13:00 AMB (Rec: 03/25/18 16:22 AMB [email or web address]) OP-PT Subjective Patient Comments Patient Comments Pt reports overall she is feeling slightly better than last week. She is going to have a new job soon, so she will be unable to come to PT here due to her new schedule. PT-OP-Q Treatments Start: 10/21/17 13:51 Freq: Status: Active Protocol: Document 03/25/18 13:00 AMB (Rec: 03/25/18 16:22 AMB [email or web address]) Therapeutic Exercises Supine Exercises 4 Supine Exercise Name bridge w/faciliation & cueing 3 Supine Exercise Name marching with neutral pelvis Comments w/hands on pelvis to monitor Sidelying Exercises 4 Sidelying Exercise Name sidelying QL stretch Reps/Minutes 5 min Manual Therapy Treatment Joint Mobilizations 1 Joint sacrum Direction caudal & UPA FM Manual Techniques 1 Type Gentle post depression stretch pelvis PT-OP-R Modalities Start: 11/05/17 07:27 Freq: Status: Active Protocol: Document 03/17/18 16:27 LRH (Rec: 03/17/18 16:56 LRH [email or web address]) Electric Stimulation Electric Stimulation Interferential Current (IFC) Body Location lumbosacral Duration (Minutes) 15 Patient Position Hooklying Combined With Heat/Cold Hot Pack PT-OP-T Assessment and Plan Start: 10/21/17 13:51 Freq: Status: Active Protocol: Document 03/25/18 13:00 AMB (Rec: 03/25/18 16:22 AMB [email or web address]) Physical Therapy Assessment Assessment Summary Assessment Pt given handouts on SI belts. Sore throughout lumbar and sacrum today. Physical Therapy Plan Frequency and Duration Frequency of Treatment 1x/Week Duration of Treatment 12 weeks Plan of Care Start Date 02/25/18 Plan of Care End Date 05/20/18 Next Visit Focus/Plan Next Note Type Discharge Summary Next Visit Plan Finalize HEP next visit due to new job and insurance limits.
--- NOTE | 2018-03-30 15:37 | PT.OTN ---
Current Diagnoses Pain in left hip (03/30/18) Lumbago with sciatica, left side (03/30/18) Low back pain (03/30/18) Physical Therapy Treatment Note PT-OP-A Visit Information Start: 10/21/17 13:51 Freq: Status: Active Protocol: Document 03/30/18 08:45 AMB (Rec: 03/30/18 15:23 AMB [email or web address]) Out-Patient Physical Therapy Visit Information Visit Information Visit Type Discharge Summary Visit Note Visit Start Time 08:45 Visit Stop Time 09:40 Total Visit Minutes 55 Visit Number 18 Evaluation Information Evaluation Date 09/29/17 PT-OP-C Subjective Start: 10/21/17 13:51 Freq: Status: Active Protocol: Document 03/30/18 08:45 AMB (Rec: 03/30/18 15:23 AMB [email or web address]) OP-PT Subjective Patient Comments Patient Comments The patient reports overall pain comes and goes. PT-OP-Q Treatments Start: 10/21/17 13:51 Freq: Status: Active Protocol: Document 03/30/18 08:45 AMB (Rec: 03/30/18 15:23 AMB [email or web address]) Therapeutic Exercises Supine Exercises 4 Supine Exercise Name bridge w/faciliation & cueing 3 Supine Exercise Name marching with neutral pelvis Comments w/hands on pelvis to monitor 2 Supine Exercise Name heel slides w/neutral pelvis Comments w/hands on pelvis to monitor 1 Supine Exercise Name hip flex isometric Reps/Minutes 5 sec holds Prone Exercises 2 Prone Exercise Name quadruped hip ER Side bilateral Reps/Minutes 10 Comments tactile cueing with folder 1 Prone Exercise Name quadruped leg extension Side bilateral Reps/Minutes 10 Comments tactile cueing with folder Standing Exercises 5 Standing Exercise Name Half-kneel psoas stretch PT-OP-R Modalities Start: 11/05/17 07:27 Freq: Status: Active Protocol: Document 03/30/18 08:45 AMB (Rec: 03/30/18 11:00 AMB [email or web address]) Hot Pack/Cold Pack Treatment cold Location low back/ R hip Patient Position Hooklying Treatment Duration (minutes) 10 PT-OP-T Assessment and Plan Start: 10/21/17 13:51 Freq: Status: Active Protocol: Document 03/30/18 08:45 AMB (Rec: 03/30/18 09:00 AMB [id number]) Physical Therapy Assessment Goals 3 Impairment Strength Short Term Goal (STG) The patient will be independent with her HEP to improve core and hip strength. STG Duration GOAL MET 2 Impairment Pain Short Term Goal (STG) The patient will perform all ADLs without pain that radiates into leg. MET- STG Duration 4 weeks Lieutenant/Deputy Goal (LTG) The patient will have decreased tenderness over her lumbar spine and SI joint with moderate palpation. PROGRESS MADE LTG Duration 8 weeks 1 Impairment Positional tolerance Short Term Goal (STG) The patient will ambulate on firm surfaces for 30 minutes without an increase in baseline pain. MET STG Duration 4 weeks [facility] Goal (LTG) The patient will sit in a chair for 30 minutes without an increase in baseline pain. MET [ End ] LTG Duration 8 weeks Assessment Summary Assessment The patient has met some of her goals. Her initial pain of L hip pain that radiates into the leg has decreased. Her right pain comes and goes and appears to be related to her bilateral SI pain. Overall her pain is quite chronic in nature and flares intermittently related to extended walking, standing, sitting. She is doing well with her HEP, but has to be careful not to overdo. She has met her maximum insurance benefit at this time so is therefore discharged. Physical Therapy Plan Discharge Physical Therapy Discharge Comments Insurance maximum
--- NOTE | 2018-03-30 15:37 | PT.OPDS ---
Current Diagnoses Pain in left hip (03/30/18) Lumbago with sciatica, left side (03/30/18) Low back pain (03/30/18) Provider Visit Care Team Role Provider Type Jaqueline Dumont PA-C Attending Provider Advanced Cardiopulmonary Physical Therapist Family Provider Primary Care Provider Referring Provider Specialty: Family Practice Address: [address] [place] [address] Email: [email or web address] Number Visit Number [id number] Discharge Summary PT-OP-C Subjective Start: 10/21/17 13:51 Freq: Status: Active Protocol: Document 03/30/18 08:45 AMB (Rec: 03/30/18 15:23 AMB [email or web address]) OP-PT Subjective Patient Comments Patient Comments The patient reports overall pain comes and goes. PT-OP-T Assessment and Plan Start: 10/21/17 13:51 Freq: Status: Active Protocol: Document 03/30/18 08:45 AMB (Rec: 03/30/18 09:00 AMB [id number]) Physical Therapy Assessment Goals 3 Impairment Strength Short Term Goal (STG) The patient will be independent with her HEP to improve core and hip strength. STG Duration GOAL MET 2 Impairment Pain Short Term Goal (STG) The patient will perform all ADLs without pain that radiates into leg. MET- STG Duration 4 weeks Annealing Oven Operator Goal (LTG) The patient will have decreased tenderness over her lumbar spine and SI joint with moderate palpation. PROGRESS MADE LTG Duration 8 weeks 1 Impairment Positional tolerance Short Term Goal (STG) The patient will ambulate on firm surfaces for 30 minutes without an increase in baseline pain. MET STG Duration 4 weeks Annealing Oven Operator Goal (LTG) The patient will sit in a chair for 30 minutes without an increase in baseline pain. MET [ End ] LTG Duration 8 weeks Assessment Summary Assessment The patient has met some of her goals. Her initial pain of L hip pain that radiates into the leg has decreased. Her right pain comes and goes and appears to be related to her bilateral SI pain. Overall her pain is quite chronic in nature and flares intermittently related to extended walking, standing, sitting. She is doing well with her HEP, but has to be careful not to overdo. She has met her maximum insurance benefit at this time so is therefore discharged. Physical Therapy Plan Discharge Physical Therapy Discharge Comments Insurance maximum
== END 2018-04-06 16:05 ==
LOC: PHYS 08:45
PROVIDERS: Family Provider Physician Assistant; PCP Physician Assistant; Referring Provider Physician Assistant; Visit Provider Physician Assistant
DX: M25.552 Pain in left hip (principal); M54.5 Low back pain; M54.42 Lumbago with sciatica, left side
CPT/HCPCS: 97010; 97014; 97035; 97110; 97140; 97530; 97535; G0283

== ENCOUNTER → 2018-04-23 15:39 | Outpatient (CLI) | payer OTHER, MEDICAID, SELFPAY ==
--- NOTE | 2018-04-23 15:43 | DI.CT.S_ITS ---
PROCEDURE: CT LUMBAR SPINE WO CON INDICATIONS: chronic pain TECHNIQUE: Noncontrast 3 mm thick sections acquired from the T12 level to the sacrum. Sagittal and coronal reformats were constructed. For radiation dose reduction, the following was used: automated exposure control. COMPARISON: [facility], CR, XR LUMBAR SPINE 2-3V, 11/12/2017, 14:10. FINDINGS: Image quality: Excellent. Bones: There is normal bony alignment. No acute vertebral body compression fractures. No suspicious lytic or blastic bony lesions. Central spinal caliber is of normal overall caliber. No pars defects. Soft tissues: No retroperitoneal masses or hematomas. Visualized aorta is normal in caliber. IMPRESSION: 1. No fracture or dislocation. 2. No central stenosis. 3. No neural foraminal narrowing. 4. No lytic or blastic lesions. Dictated by: Anitra Adair MD, PhD on 04/23/2018 at 16:10 Approved by: Anitra Adair MD, PhD on 04/23/2018 at 16:15
--- NOTE | 2018-04-23 15:43 | DI.CT.S_ITS ---
PROCEDURE: CT THORACIC SPINE WO CON INDICATIONS: chronic pain TECHNIQUE: Noncontrast 3 mm thick sections acquired through the region of interest in the thoracic spine. Sagittal and coronal reformats were then constructed. For radiation dose reduction, the following was used: automated exposure control. COMPARISON: None. FINDINGS: Image quality: Excellent. Bones: There is normal overall bony alignment. No acute vertebral body compression fractures. No suspicious sclerotic or lytic bony lesions. Central spinal canal is of normal overall caliber. Moderate T6-T7 degenerative disc changes are noted. Mild T4-T5, T5-T6, T7-T8, T8-T9 and T9-T10 degenerative changes are noted. No neural foraminal narrowing. Soft tissues: No paravertebral masses or hematomas. Visualized posteromedial lungs appear clear. IMPRESSION: 1. Multilevel degenerative disc disease. 2. No evidence of fracture or dislocation. 3. No lytic or blastic lesions. Dictated by: Anitra Adair MD, PhD on 04/23/2018 at 15:50 Approved by: Anitra Adair MD, PhD on 04/23/2018 at 16:01
== END ==
PROVIDERS: Visit Provider Nurse Practitioner Family
DX: M51.34 Other intervertebral disc degeneration, thoracic region (principal); M54.9 Dorsalgia, unspecified; G89.29 Other chronic pain; M25.559 Pain in unspecified hip
CPT/HCPCS: 72128; 72131

== ENCOUNTER → 2020-09-21 08:10 | Outpatient (CLI) | payer OTHER, SELFPAY ==
--- NOTE | 2020-09-21 08:12 | DI.MG.S_ITS ---
BILATERAL DIGITAL SCREENING MAMMOGRAM 3D/2D WITH CAD: 09/21/2020 CLINICAL: Baseline exam. Routine screening. No prior exams were available for comparison. The tissue of both breasts is heterogeneously dense. This may lower the sensitivity of mammography. Current study was also evaluated with a Computer Aided Detection (CAD) system. There is a 1.7 cm focal asymmetry in the right breast at 9 o'clock middle depth 4 cm from the nipple. There is a 0.8 cm asymmetry in the left breast middle depth superior region seen on the mediolateral oblique view only 5.3 cm from the nipple. IMPRESSION: INCOMPLETE: NEEDS ADDITIONAL IMAGING EVALUATION The 1.7 cm focal asymmetry in the right breast at 9 o'clock middle depth is indeterminate. Additional views with possible ultrasound are recommended. The 0.8 cm asymmetry in the left breast middle depth superior region seen on the mediolateral oblique view only is indeterminate. Additional views with possible ultrasound are recommended. This exam was interpreted at Station ID: [id number]. NOTE: For mammograms, a report in lay terms will be sent to the patient. Approximately 15% of breast malignancies will not be visualized mammographically. In the management of a palpable breast mass, a negative mammogram must not discourage biopsy of a clinically suspicious lesion. Electronically Signed By: Thaddeus Renee M.D. jr/:09/21/2020 08:50:10 letter sent: Additional Imaging Needed ACR BI-RADS Category 0: Incomplete [id number]
--- NOTE | 2020-09-21 08:12 | DI.RAD.S_ITS ---
PROCEDURE: XR HIP W PEL IF DONE LT 2V INDICATIONS: chronic L hip pain TECHNIQUE: 2 views of the hip were acquired. COMPARISON: None. FINDINGS: Bones: Mild symmetric appearing bilateral hip joint osteoarthritic changes are seen. No evidence of avascular necrosis of femoral head. No fractures or dislocations. No suspicious bony lesions. The visualized pelvic ring appears intact. Soft tissues: No suspicious soft tissue calcifications or masses. IMPRESSION: Mild symmetric appearing bilateral hip joint osteoarthritis. No hip fracture or dislocation. No evidence of avascular necrosis. Dictated by: Ajay May M.D. on 09/21/2020 at 9:23 Approved by: Ajay May M.D. on 09/21/2020 at 9:23
== END ==
PROVIDERS: PCP Registered Nurse Diabetes Educator; Referring Provider Registered Nurse Diabetes Educator; Visit Provider Registered Nurse Diabetes Educator
DX: Z12.31 Encounter for screening mammogram for malignant neoplasm of breast (principal); N64.89 Other specified disorders of breast; M16.0 Bilateral primary osteoarthritis of hip
CPT/HCPCS: 73502; 77063; 77067

== ENCOUNTER → 2020-10-15 14:02 | Outpatient (CLI) | payer OTHER, SELFPAY | PROVIDERS: PCP Registered Nurse Diabetes Educator; Visit Provider Physician Assistant | DX: J02.9 Acute pharyngitis, unspecified (principal) | CPT/HCPCS: 87070 ==

== ENCOUNTER → 2020-10-18 10:13 | Outpatient (CLI) | payer OTHER, SELFPAY ==
[2020-10-18 11:16] LABS: COVID19 -Nasal RAPID Negative (Negative)
== END ==
PROVIDERS: PCP Registered Nurse Diabetes Educator; Visit Provider Student in an Organized Health Care Education/Training Program
DX: J02.9 Acute pharyngitis, unspecified (principal); Z20.822 Contact with and (suspected) exposure to COVID-19
CPT/HCPCS: 87635

== ENCOUNTER → 2020-10-20 08:27 | Outpatient (CLI) | payer OTHER, SELFPAY | PROVIDERS: PCP Registered Nurse Diabetes Educator; Visit Provider Registered Nurse | DX: N76.0 Acute vaginitis (principal) | CPT/HCPCS: 87210 ==

== ENCOUNTER → 2020-10-20 14:05 | Outpatient (CLI) | payer OTHER, SELFPAY ==
--- NOTE | 2020-10-20 14:07 | DI.MG.S_ITS ---
BILATERAL DIGITAL DIAGNOSTIC MAMMOGRAM 3D/2D WITH ADDITIONAL VIEWS: 10/20/2020 CLINICAL: Additional evaluation requested from prior study. Comparison is made [facility]. The tissue of both breasts is heterogeneously dense. This may lower the sensitivity of mammography. The benign 1.7 cm focal asymmetry in the right breast at 9 o'clock posterior depth 4 cm from the nipple is no longer seen. There is a mass in the left breast seen on the craniocaudal view only. The benign 0.8 cm asymmetry in the left breast middle depth superior region seen on the mediolateral oblique view only 5.3 cm from the skin is no longer seen. No other significant masses or calcifications are seen in either breast. IMPRESSION: NEGATIVE Previously questioned asymmetries both dissipated with spot compression, therefore representing superimposition of fibroglandular tissue on the prior studie. No findings of malignancy. Annual screening recommended. This exam was interpreted at Station ID: [id number]. NOTE: For mammograms, a report in lay terms will be sent to the patient. Approximately 15% of breast malignancies will not be visualized mammographically. In the management of a palpable breast mass, a negative mammogram must not discourage biopsy of a clinically suspicious lesion. Electronically Signed By: Thaddeus Renee M.D. jr/:10/23/2020 07:52:26 letter sent: Normal Exam ACR BI-RADS Category 1: Negative [id number]
== END ==
PROVIDERS: PCP Registered Nurse Diabetes Educator; Referring Provider Registered Nurse Diabetes Educator; Visit Provider Registered Nurse Diabetes Educator
DX: R92.8 Other abnormal and inconclusive findings on diagnostic imaging of breast (principal)
CPT/HCPCS: 77066; G0279

== ENCOUNTER → 2020-12-07 10:49 | Outpatient (CLI) | payer OTHER, SELFPAY ==
--- NOTE | 2020-12-07 | DI.RAD.S_ITS ---
PROCEDURE: FL HIP INJECTION MR/CT LT INDICATIONS: LEFT HIP PAIN TECHNIQUE: The indications, alternatives, benefits, risks, and complications of the procedure were explained to the patient. Written informed consent was obtained and placed in the chart. The hip was examined fluoroscopically with the legs fixed in slight internal rotation, and a site for needle placement chosen for entry into the hip joint from an anterior approach. Care was taken to locate the common femoral artery and vein beforehand. The skin was prepped and draped in a sterile fashion, and 1% Lidocaine infiltrated from skin down to joint capsule. A spinal needle was inserted into the joint, and a small amount of iodinated contrast media injected to confirm intra-articular placement of the needle tip. This was followed by approximately 10 mL dilute solution of a gadolinium containing MR contrast agent. The needle was removed and a dressing was applied. The patient was given postprocedural instructions and sent to the MR suite for imaging. COMPARISON: None. FINDINGS: A single fluoroscopic spot image demonstrates intra-articular location of injected iodinated contrast. IMPRESSION: Successful fluoroscopically guided administration of dilute Gadolinium solution into the hip joint for MR arthrogram. Dictated by: Javon Geroge M.D. on 12/07/2020 at 16:30 Approved by: Javon George M.D. on 12/07/2020 at 16:30
--- NOTE | 2020-12-07 10:51 | DI.MRI.S_ITS ---
PROCEDURE: MR HIP LT W CON INDICATIONS: eval L hip pain refractory to PT, concern for labral tear TECHNIQUE: After the administration of 10 mL of dilute intra-articular Gadolinium contrast, coronal STIR of the bony pelvis; coronal and oblique axial T1 spin echo with fat saturation, axial T2 fast spin echo with fat saturation, sagittal T1 spin echo with and without fat saturation of the involved hip. COMPARISON: Hip and pelvis radiographs dated 09/21/20. FINDINGS: Bones and joints: No fracture identified. Sacroiliac joints are unremarkable in signal intensity. There is lower lumbar spondylosis and facet arthropathy. No evidence of osteonecrosis. Tendons and ligaments: The gluteus medius and minimus tendons appear intact, without associated muscle atrophy. Proximal iliotibial band intact. Iliopsoas tendon intact. Origin of the hamstring tendon intact. Thickening of the straight and reflected heads of the rectus femoris muscle origin with T2 hypointense appearance. Minimal if any adjacent soft tissue edema. Ligamentum teres appears intact where visualized. Labrum: Mild fraying of the anterior superior labrum, which is probably age-appropriate. No intrasubstance gadolinium signal intensity identified to suggest discrete tear. Minimal adjacent partial-thickness chondral loss and subchondral sclerosis which is probably age-appropriate. The alpha angle of the femur is within normal limits at less than 55 degrees. Soft tissues: Visualized muscles demonstrate normal bulk and internal signal. Quadratus femoris muscle normal. Proximal sciatic neurovascular bundle appears normal adjacent to the hamstring tendons. No free pelvic fluid. Bladder normal. Within the left ovary, there is a 1.4 cm ovoid focus with T1 hyperintense and T2 hyperintense signal intensity probably incidental hemorrhagic ovarian follicle with late subacute age blood products. IMPRESSION: Thickened appearance of the rectus femoris origin suggestive of chronic strain/overuse. Mild fraying of the anterosuperior labrum, most likely age-appropriate degeneration. Dictated by: Javon George M.D. on 12/07/2020 at 16:39 Approved by: Javon George M.D. on 12/07/2020 at 16:56
== END ==
PROVIDERS: PCP Registered Nurse Diabetes Educator; Referring Provider Registered Nurse Diabetes Educator; Visit Provider Registered Nurse Diabetes Educator
DX: M25.552 Pain in left hip (principal)
CPT/HCPCS: 27093; 73722; 77002

== ENCOUNTER → 2025-04-02 12:29 | Outpatient (CLI) | payer BC, SELFPAY | PROVIDERS: Referring Provider Physician Assistant; Visit Provider Physician Assistant | DX: N95.1 Menopausal and female climacteric states (principal) | CPT/HCPCS: 36415; 84403 ==